=== PATIENT | female | born 1995 | race Caucasian/White ===

== ENCOUNTER 2021-05-04 12:27 | Inpatient (IN) ==
[2021-05-04] MEDS ORDERED: DEXTROSE 5%-LACTATED RINGERS 1,000 ML IV PRN (13:21)
[2021-05-04] MEDS ORDERED: OXYTOCIN/0.9 % SODIUM CHLORIDE 30 UNITS/500 ML BAG IV ONE (13:21)
[2021-05-04] MEDS: RINGER'S SOLUTION,LACTATED 1,000 ML IV PRN ×3 (13:48→18:18)
--- NOTE | 2021-05-04 14:50 | HP ---
Chief Complaint - Chief Complaint Date of Service: 05/04/21 Time of Service: 13:10 Chief Complaint: contractions History of Present Illness: 26 yo at 38w0d presents to L&D complaining of contractions of increasing intensity since yesterday evening. Pt was seen in L&D last night for contractions which were mild and did not worsen. She continued to contract all night and they have become increasingly more uncomfortable and frequent. Denies LOF, vaginal bleeding, decreased FM, N/V/F/C. This complicated by anemia, Covid (), prior C/S x 3, labor, and h/o migraines. Rh positive Rubella immune GBS negative Medical History (Last Reviewed 05/04/21 @ 14:39 by Truong Enrique DO) Anemia Onset Date: ~2013 during x3 COVID-19 Onset Date: ~11/23/20 Migraines no aura Surgical History: Surgical History (Last Reviewed 05/04/21 @ 14:39 by Truong Enrique DO) Previous section (Chronic) x3 H/O section Onset Date: 10/18/14 x3 Family History: Family History (Last Reviewed 05/04/21 @ 14:39 by Truong Enrique DO) Mother Alive and well Father Alive and well Social History: (Last Reviewed 05/04/21 @ 14:39 by Truong Enrique DO) Social History: adopted: No Marital status: household members: spouse number of children: 3 current occupational status: employed 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- [employer] Highest level of school completed/degree received: Bachelor's degree Sexually Active: Yes Service: No Tobacco: Smoking Status: Never smoker Alcohol: alcohol intake: current alcohol intake frequency: holiday/special occasion details: none since + UPT Substance Use: substance use type: does not use Dietary Habits: caffeine: Yes caffeine comment: 1 can/day Type: carbonated beverages Exercise: frequency: does not exercise Review Of Systems (GEN) - Review of Systems Generalized/Overall Review: Present: No Symptoms Reported EENTM: Present: No Symptoms Reported Respiratory: Present: No Symptoms Reported Cardiac: Present: No Symptoms Reported Abdominal: Present: Abdominal Pain - contractions Genitourinary: Present: No Symptoms Reported Musculoskeletal: Present: No Symptoms Reported Neurological: Present: No Symptoms Reported Skin: Present: No Symptoms Reported Endocrine: Present: No Symptoms Reported Allergies/Adverse Reactions: Allergies Allergy/AdvReac Type Severity Reaction Status Date / Time No Known Allergies Allergy Verified 05/03/21 22:39 Home Medications: HOME MEDICATIONS ferrous sulfate 325 mg (65 mg iron) tablet 325 mg PO BID 03/15/21 [Last Taken 05/04/21 06:30] Vits96/Iron Fum/Folic [ S] 1 tab PO DAILY 05/04/21 [Last Taken 05/04/21 06:30] Exam - Exam Vital Signs: Vital Signs - Last Taken Temp 36.7 C 05/04/21 13:49 Pulse 92 05/04/21 13:49 Resp 18 05/04/21 13:49 BP 135/60 05/04/21 13:49 Pulse Ox 99 05/04/21 13:49 Constitutional: Present: Alert, Oriented x3, Cooperative, Mild distress ENT Exam: Present: hearing grossly normal Neck: Present: non-tender, trachea midline. Absent: thyromegaly Breasts: Present: Exam deferred Respiratory: Present: lungs clear, no respiratory distress Cardiovascular/Chest: Present: normal peripheral pulses, regular rate, rhythm, no edema Abdomen: Present: soft, nontender, no rebound tenderness, other - gravid /Rectal: Present: Other - Cervix - FT per nurse (pt never dilated with prior pregnancies) Extremity: Present: non-tender, no pedal edema, no calf tenderness Skin Exam: Present: normal color, warm/dry, no cyanosis Lymphatic: Present: no adenopathy Neurologic: Present: alert, normal mood/affect, oriented x 3 Appearance: Present: appropriate appearance, appropriate insight Eye contact: Present: cooperative, good eye contact Thoughts: Present: normal thought pattern, normal mood /affect Diagnostic Studies: Laboratory Results Blood Type O Positive 05/04/21 13:30 Antibody Screen Negative 05/04/21 13:30 Assessment/Plan - Assessment/Plan (1) Labor established Assessment: Admit for RLTCS with BLS and possible abdominal scar revision. COVID test prior to c/s. Problem: Acute (2) Previous section Problem: Chronic (3) Request for sterilization Assessment: The risks, benefits, and alternatives to bilateral salpingectomy discussed with patient, including risks of failure up to 1/300 with increased risk of ectopic if failure occurs. Patient understands this is a permanent and non- reversible procedure and that the potential reduced risk of ovarian cancer has not yet been proven. All questions answered. Informed consent obtained. Problem: Acute Non Stress Test - Status NST: 05/04/21 Reason for NST: other - prior c/s in labor Monitor Mode: External Acceleration: Present Decelerations: Variable Variability: Moderate 6-25 bpm Baseline Heart Rate: 145 Activity: reactive Reactive: 15 by 15 - Assessment NST Assessment: other - Prior c/s in labor - Plan NST Plan: Admit to L&D - RLS
[2021-05-04] MEDS ORDERED: ceFAZolin SODIUM 1 GM VIAL ONE (16:04)
[2021-05-04] MEDS ORDERED: BUPIVACAINE HCL/EPINEPHRINE 50 ML VIAL ONE (16:29)
[2021-05-04] MEDS ORDERED: ONDANSETRON HCL/PF 2 MG/ML VIAL ONE (16:29)
[2021-05-04] MEDS ORDERED: MIDAZOLAM HCL/PF 5 MG/ML VIAL ONE (16:30)
[2021-05-04] MEDS ORDERED: fentaNYL CITRATE/PF 50 MCG/ML AMPUL ONE (16:30)
--- NOTE | 2021-05-04 16:34 | ANES ---
Anesthesia Pre Procedure Eval Vitals/Labs: Last Vital Signs Temp 36.7 C 05/04/21 13:49 Pulse 92 05/04/21 13:49 Resp 18 05/04/21 13:49 BP 135/60 05/04/21 13:49 Pulse Ox 99 05/04/21 13:49 HOME MEDICATIONS ferrous sulfate 325 mg (65 mg iron) tablet 325 mg PO BID 03/15/21 [Last Taken 05/04/21 06:30] Vits96/Iron Fum/Folic [ S] 1 tab PO DAILY 05/04/21 [Last Taken 05/04/21 06:30] Allergies/Adverse Reactions: Allergies Allergy/AdvReac Type Severity Reaction Status Date / Time No Known Allergies Allergy Verified 05/03/21 22:39 - Planned Procedure Planned Procedure: Medication List Reviewed:: Yes Allergies Verified: Yes Medical History (Last Reviewed 05/04/21 @ 16:33 by Bayron Martin CRNA) Anemia Onset Date: ~2013 during x3 COVID-19 Onset Date: ~11/23/20 Migraines no aura Surgical History (Last Reviewed 05/04/21 @ 16:33 by Bayron Martin CRNA) Previous section (Chronic) x3 H/O section Onset Date: 10/18/14 x3 Family History (Last Reviewed 05/04/21 @ 16:33 by Bayron Martin CRNA) Mother Alive and well Father Alive and well - Family Anesthesia History Family History:: no untoward family reactions to anesthesia, no familial bleeding tendencies, no family history of clotting disorders, no family history of premature - Airway/Neck/Teeth Within Normal Limits:: Yes Teeth Condition: intact Mallampatti Score: 2 Thyromental (T-M) distance: > 6 cm Mandibulo Hyoid distance: > 3 cm - Respiratory Respiratory Physical: lungs clear - Cardiovascular Tolerate Activity: Good Heart Sounds: S1 & S2, Regular - Gastrointestinal NPO since: 0700 - Anesthesia Assessment and Plan ASA Class: PS, II Anesthesia Type Plan: Block - Bilateral Tap blocks for postop analgesia, Spinal
[2021-05-04] MEDS ORDERED: ONDANSETRON HCL/PF 2 MG/ML VIAL IV PRN (18:39)
[2021-05-04] MEDS ORDERED: SENNOSIDES 8.6 MG TABLET PO PRN (18:39)
[2021-05-04] MEDS ORDERED: diphenhydrAMINE HCL 25 MG CAPSULE PO PRN (18:39)
[2021-05-04] MEDS ORDERED: ACETAMINOPHEN 325 MG TABLET PO PRN (18:39)
[2021-05-04] MEDS ORDERED: BISACODYL 10 MG SUPP.RECT RC PRN (18:39)
[2021-05-04] MEDS ORDERED: SIMETHICONE 80 MG TAB.CHEW PO PRN (18:39)
--- NOTE | 2021-05-04 18:44 | ANES ---
Post Anesthesia Discharge - Transfer of Care Transfer of Care handoff given to nurse: Yes - Discharge from PACU Discharge from PACU when meets criteria: Yes - Discharge to ASU Discharge to ASU-no complications/pt stable: Yes
--- NOTE | 2021-05-04 18:45 | ANES ---
Anesthesia Procedure Note Procedure Note: ANESTHESIA PROCEDURE NOTE Date of Procedure: 05/04/2021. Time of procedure: 1834. Performed by: Bayron Martin CRNA Rate Setter: None. Preprocedure diagnosis: Prior , active labor. Post procedure diagnosis: Same. Procedure: Bilateral ultrasound-guided transversus abdominis plane block for postop analgesia. Indications: The patient is a 26-year-old female post section. Findings: See below. Details of the procedure: ChloraPrep was used on the patient's abdomen and the procedure was performed under sterile technique. The right abdominal fascial layer between the internal oblique muscle and the transversus abdominis muscles was identified under ultrasound guidance. A 21-gauge 4 inch block needle was inserted under ultrasound guidance to the target fascial plane. 15 mL's of 0.5% bupivacaine plus epinephrine 1:200,000 was injected after negative aspiration for blood. The needle was removed intact and the procedure was then repeated at the left side. No complications were noted. The images were retained in the hospital medical database. EBL: Minimal. Fluids: N/A. Specimen: N/A. Post procedure condition: The patient tolerated the procedure well. No complications were noted. Thank you for this consultation. Bayron Martin CRNA
--- NOTE | 2021-05-04 18:45 | ANES ---
Post Anesthesia Assessment - Vital Signs Vitals: Last Vital Signs Temp 36.5 C 05/04/21 18:40 Pulse 106 H 05/04/21 18:40 Resp 16 05/04/21 18:40 BP 118/52 05/04/21 18:40 Pulse Ox 99 05/04/21 18:40 Airway Patency: Normal - Mental Status Level Of Consciousness: Awake - Pain Level Pain Score: 0 - N/V Assessment Nausea/Vomiting Presence: None Dehydration:: No
--- NOTE | 2021-05-04 18:51 | OR ---
Operative Report - Dictated Report Narrative: Indication: 26-year-old 4 para 3 at 38 weeks 0 days presented to labor and delivery and labor with prior section x3 desiring permanent sterilization. status: Urgent Pre Operative Diagnosis: 38-week intrauterine . Prior section x3. Labor. Desires permanent sterilization via bilateral salpingectomy. Post Operative Diagnosis: Same. Procedure: Repeat low transverse section. Bilateral salpingectomy. Abdominal scar revision -16cm Surgeon: Tawana Enrique DO Truck Driving Instructor: OR Staff Anesthesia: Spinal, TAP block Estimated Blood Loss: 400 mL Urine Output: 500 mL clear urine Fluids Replacement: 2100 mL of crystalloid Drains: Corona to gravity Surgical Complications: None Specimens: Placenta to freezer Findings: Female born at 1712 on 05/04/2023 with Apgars 5, 6, 8, weighing 3353 g and in cephalic presentation. Prolonged deceleration down to 70-80 bpm just prior to application of surgical prep. Extensive scar tissue. Normal uterus, tubes, ovaries Technique: The patient was taken to the operating room and placed in dorsal supine position with a left lateral tilt. After adequate spinal anesthesia, corona catheter inserted, SCDs placed, and 2 g of Ancef given preoperatively, the abdominal cavity was entered using sharp and blunt dissection. Extensive scar tissue was encountered from the subcutaneous tissue down through the fascia. Two rolled laps were placed in the pericolic gutters on either side of the uterus. The lower uterine segment was extremely thin. A transverse incision was made in the lower uterine segment and extended laterally and upwardly with digital traction. Clear fluid was noted upon amniotomy. Due to the patient's short torso, position of the baby, and extensive scar tissue, difficulty was encountered in delivering the head. Once the infant was delivered, the cord was clamped and cut after approximately 30 seconds and the infant was handed off to awaiting telephone information clerk. The placenta was allowed to deliver spontaneously. The uterus was cleared of clot and debris. Uterine incision was closed with 0 Vicryl using a running stitch. A second imbricating layer was placed. Excellent hemostasis was noted. The rolled laps were removed from the abdominal cavitiy. The right fallopian tube was identified and followed out to the fimbriated end. Using the hand-held LigaSure device, the mesosalpinx was coagulated and transected. The tube was then transected approximately 2 to 3 cm from the cornual region. The exact same was done on the patient's left side. Excellent hemostasis was noted. The peritoneum was densely adherent to the rectus muscle. The muscle and peritoneum were closed together using a 3-0 Monocryl running stitch. The fascia was closed with a running 0 Vicryl. The previous scar was excised in elliptical fashion. Subcutaneous bleeding was controlled with cautery. The subcutaneous layer was closed with a running 3-0 Monocryl. The skin was closed with a running 4-0 Monocryl and Dermabond. Sponge, lap, needle, and instrument count were correct x 2. Disposition: To post anesthesia care unit in good condition History for MU History for MU Definition: * The number of deliveries resulting in a live the patient experienced prior to current hospitalization * The previous delivery of live twins or any live multiple gestation is considered one live event. *If primagravida or nulliparous is documented select zero for the number of previous live births. Live Events: Live Events: 3
[2021-05-04] MEDS: IBUPROFEN 800 MG TABLET PO PRN (19:59)
[2021-05-04] MEDS: DOCUSATE SODIUM 100 MG CAPSULE PO SCH (22:04)
[2021-05-05] MEDS: oxyCODONE HCL/ACETAMINOPHEN 1 TAB TABLET PO PRN ×3 (01:00→21:52)
[2021-05-05] MEDS ORDERED: ceFAZolin SODIUM 1 GM VIAL IV PRN (06:00)
[2021-05-05] MEDS: IBUPROFEN 800 MG TABLET PO PRN ×2 (07:08→16:59)
[2021-05-05] MEDS: DOCUSATE SODIUM 100 MG CAPSULE PO SCH ×2 (09:46→21:19)
--- NOTE | 2021-05-05 11:50 | PN ---
Subjective - Date and Time Seen Date: 05/05/21 Time: 11:50 Objective - Vitals Vitals: Last Vital Signs Temp 36.1 C 05/05/21 07:08 Pulse 80 05/05/21 07:08 Resp 18 05/05/21 07:08 BP 118/63 05/05/21 07:08 Pulse Ox 98 05/05/21 07:08 Patient denies complaints. Tolerating regular diet. Ambulating without difficulty. Pain well controlled. Lochia wnl. Abdomen - soft, appropriately tender Incision -clean, dry, intact uterus - firm, at umbilicus -1 No calf tenderness Impression: Post op day #1 s/p repeat section. Bilateral salpingectomy. Abdominal scar revision Plan: Continue routine post-operative/ care Cauti Physician Documentation - Urinary Catheter Management Urethral ([place]) Date of Insertion: 05/04/21 Time of Insertion: 16:50 Date of Removal: 05/05/21 Time of Removal: 04:50 Assessment/Plan - Problems/Diagnosis (1) Labor established Problem: Acute (2) Previous section Problem: Chronic (3) Request for sterilization Problem: Acute
[2021-05-06] MEDS: oxyCODONE HCL/ACETAMINOPHEN 1 TAB TABLET PO PRN (06:40)
[2021-05-06] MEDS: IBUPROFEN 800 MG TABLET PO PRN ×3 (06:40→20:49)
[2021-05-06] MEDS: DOCUSATE SODIUM 100 MG CAPSULE PO SCH ×2 (10:43→20:49)
--- NOTE | 2021-05-06 16:27 | PN ---
Subjective - Date and Time Seen Date: 05/06/21 Time: 08:45 Objective - Vitals Vitals: Last Vital Signs Temp 36.1 C 05/06/21 13:47 Pulse 98 05/06/21 13:47 Resp 18 05/06/21 13:47 BP 112/60 05/06/21 13:47 Pulse Ox 95 05/06/21 13:47 Patient denies complaints. Ambulating well. Tolerating regular diet. Pain well controlled. Breast-feeding well. Lochia wnl. Abdomen - soft, appropriately tender Incision -clean, dry, intact uterus - firm, at umbilicus -2 No calf tenderness Impression: Post op day #2 s/p repeat section. Abdominal scar revision. Bilateral salpingectomy. Plan: Continue routine post-operative/ care Cauti Physician Documentation - Urinary Catheter Management Urethral ([place]) Date of Insertion: 05/04/21 Time of Insertion: 16:50 Date of Removal: 05/05/21 Time of Removal: 04:50 Assessment/Plan - Problems/Diagnosis (1) S/P repeat low transverse Problem: Acute (2) Labor established Problem: Resolved (3) Previous section Problem: Chronic (4) Request for sterilization Problem: Resolved
[2021-05-07] MEDS: IBUPROFEN 800 MG TABLET PO PRN (07:59)
[2021-05-07] MEDS: DOCUSATE SODIUM 100 MG CAPSULE PO SCH ×2 (07:59→13:37)
[2021-05-07 08:38] VITALS: BP 128/88
--- NOTE | 2021-05-07 11:24 | PN ---
Subjective - Date and Time Seen Date: 05/07/21 Time: 11:22 Subjective Narrative: Patient without complaints Objective Objective Narrative: See vitals - Review of Systems Generalized/Overall Review: Reports: No Symptoms Reported Misc: All systems neg except as marked - Vitals Vitals: Last Vital Signs Temp 36.0 C 05/07/21 07:45 Pulse 89 05/07/21 07:45 Resp 20 05/07/21 07:45 BP 128/88 05/07/21 07:45 Pulse Ox 99 05/07/21 07:45 - Exam Constitutional: Present: Alert, Oriented x3, Cooperative, No distress ENT Exam: Present: hearing grossly normal Neck: Present: supple, normal inspection Respiratory: Present: lungs clear, normal breath sounds Cardiovascular/Chest: Present: regular rate, rhythm Abdomen: Present: soft, nontender, nondistended - incision c/d/i Extremity: Present: non-tender, no calf tenderness Skin Exam: Present: normal color, warm/dry, no cyanosis Neurologic: Present: alert, normal mood/affect, oriented x 3 Appearance: Present: appropriate appearance, appropriate insight, neat, no memory impairment Eye contact: Present: cooperative, good eye contact, normal speech Thoughts: Present: normal thought pattern Cauti Physician Documentation - Urinary Catheter Management Urethral ([place]) Urethral Indwelling: No Date of Insertion: 05/04/21 Time of Insertion: 16:50 Date of Removal: 05/05/21 Time of Removal: 04:50 Assessment/Plan Plan Narrative: POD 3 s/p repeat delivery, bilateral salpingectomies Doing well Discharge today - Problems/Diagnosis (1) Sterilization Problem: Acute (2) S/P repeat low transverse Problem: Acute
--- NOTE | 2021-05-07 11:27 | DS ---
OB Discharge Summary (1) Sterilization Status: Acute (2) S/P repeat low transverse Status: Acute Delivery Date: [birth year] Delivery Time: 17:12 :: 4 Para:: 4 Gestational weeks:: 38 Gestational days:: 0 Intrapartum Procedures: Secondary Section, Anesthesia - Spinal, Other - bilateral salpingectomy Procedures: None /OP Complications: No Complications Discharge Diagnosis: Term -Delivered - Discharge Information Date of Discharge: 05/07/21 Hospital Course: The patient was admitted for a repeat delivery and salpingectomies. Procedure and course uncomplicated Discharge Location: Home Disposition: Home self-care Condition: Good Activity on Discharge:: Activity as tolerated, Pelvic Rest Discharge Diet: General/regular food Additional Patient Instructions (free text): Your 2 week post op incision follow up appointment with Dr. Enrique is scheduled on Monday May 17, 2021 at 1:15 p.m. Please call [facility] or [facility] with any problems or concerns. Geraldo's follow up appointment is scheduled with Dr. Walker for Monday May 10, 2021 at 3:00 p.m. Also please follow up with Dr. Ferguson on Monday May 17, 2021 at 2:45 p.m. Please call [facility] with any problems or concerns. Prescriptions (Any new or edited meds): Ibuprofen [Motrin] 200 - 800 mg PO Q6H PRN #100 tab PRN Reason: Pain Transmission Status: Received by [employer] [place], [place] oxyCODONE HCL/ACETAMINOPHEN [Percocet 5 MG/325 MG] 1 tab PO Q4H PRN #10 tab PRN Reason: Moderate Pain Transmission Status: Received by [employer] [place], [place] Complete Home Medications List: Complete Home Medication List: ferrous sulfate 325 mg (65 mg iron) tablet 325 mg PO BID 03/15/21 Vits96/Iron Fum/Folic [ S] 1 tab PO DAILY 05/04/21 Ibuprofen [Motrin] 200 - 800 mg PO Q6H PRN #100 tab 05/05/21 oxyCODONE HCL/ACETAMINOPHEN [Percocet 5 MG/325 MG] 1 tab PO Q4H PRN #10 tab 05/05/21 - Plan Discharge to:: Home Comment:: Routine Discharge Instructions Follow up in office in:: 2 weeks - Information Weight (Grams): 3,353 Infant Sex: Female Score 1 min: 5 Score 5 min: 6 Complications: Other Other Complications: decel for 2 min right before delivery
== END 2021-05-07 11:48 | disposition home or self-care (01) | DRG 785 ==
LOC: OBCLINIC 12:27 → OB 13:11
PROVIDERS: ADMIT Obstetrics & Gynecology; ATTEND Obstetrics & Gynecology